=== PATIENT | female | born 1985 | race Caucasian/White ===

== ENCOUNTER 2018-02-27 11:45 | Outpatient (CLI) | payer OTHER ==
--- NOTE | 2018-02-27 14:29 | Ultrasound Report ---
ULTRASOUND OB LIMITED History: Nonreactive stress test Technique: Transabdominal ultrasound with Doppler interrogation. Gestation: Single Position: Cephalic Amniotic Fluid: Normal PHILIPPE = 14.4 cm Heart Rate: 162 BPM
--- NOTE | 2018-02-27 14:30 | Ultrasound Report ---
ULTRASOUND BIOPHYSICAL PROFILE: History: Nonreactive stress test Technique: Transabdominal ultrasound with Doppler interrogation. 2 - breathing movements 2 - movements 2 - posture and tone 2 - Qualitative amniotic fluid volume 8 - TOTAL SCORE OF POSSIBLE 8 Heart Rate (bpm) 162
== END 2018-02-27 14:00 | disposition home or self-care (01) ==
LOC: TRG 11:45
PROVIDERS: ATTEND Obstetrics & Gynecology
DX: O48.0 Post-term pregnancy (principal); Z3A.40 40 weeks gestation of pregnancy
CPT/HCPCS: 59025; 76815; 76819

== ENCOUNTER 2018-03-02 20:36 | Inpatient (IN) | payer OTHER ==
[2018-03-02 21:54] LABS: Hematocrit 36.1 % (30.3-42.9); Hemoglobin 12.5 gm/dl (10.1-14.3); Mean Corpuscular HGB Conc 35 % (30-34); Mean Corpuscular Hemoglobin 32 pg (28-32); Mean Corpuscular Volume 94 fl (79-97); Platelet Count 147 K/mm3 (140-440); Red Blood Count 3.85 M/mm3 (3.65-5.03); Red Cell Distribution Width 13.4 % (13.2-15.2)
[2018-03-03] MEDS ORDERED: LACTATED RINGERS 1,000 ML ONE ×2 (03:52→05:15)
[2018-03-03] MEDS: LACTATED RINGERS 1,000 ML IV SCH ×3 (07:36→18:38)
[2018-03-03] MEDS ORDERED: PITOCin/NS 30 UNIT/500ML 30 UNITS/500 ML BAG IV SCH ×3 (09:00→10:00)
[2018-03-03] MEDS ORDERED: BRETHINE IVP PRN (09:02)
[2018-03-03] MEDS ORDERED: BRETHINE SUB-Q PRN (09:02)
[2018-03-03] MEDS ORDERED: ePHEDrine SULFATE IV PRN (09:02)
[2018-03-03] MEDS ORDERED: XYLOCAINE 2% INFILTRATI ONE (09:02)
[2018-03-03] MEDS ORDERED: SUBLIMAZE IV PRN (09:02)
[2018-03-03] MEDS ORDERED: MINERAL OIL PO PRN (09:02)
[2018-03-03] MEDS ORDERED: ZOFRAN IV PRN ×2 (09:02→19:25)
--- NOTE | 2018-03-03 09:02 | History and Physical Report ---
History of Present Illness Date of examination: 03/03/18 Date of admission: 03/02/18 20:36 Chief complaint: induction of labour History of present illness: 33 y/o at 41 wks is here for labour induction; course has been unremarkable. She is GBS neg Past History Past Medical History: no pertinent history Past Surgical History: no surgical history [employer] History: denies: cancer, chlamydia, fibroids, gonorrhea, hepatitis B, hepatitis C, herpes, HIV, syphilis, trichomonas Social history: , full code. denies: smoking, alcohol abuse, prescription drug abuse, IV drug use - Obstetrical History Expected Date of Delivery: 02/23/18 Actual Gestation: 41 Week(s) 1 Day(s) : 2 Para: 1 Medications and Allergies Allergies Allergy/AdvReac Type Severity Reaction Status Date / Time No Known Allergies Allergy Verified 03/03/18 03:57 Home Medications Medication Instructions Recorded Confirmed Last Taken Type No Known Home Medications [No 03/03/18 03/03/18 Unknown History Reported Home Medications] Active Meds: Active Medications Lactated Ringer's (Lactated Ringers) 1,000 mls @ 125 mls/hr IV DIRECT MARKOS Last Admin: 03/03/18 07:36 Dose: 125 mls/hr Oxytocin/Sodium Chloride (Pitocin/Ns 30 Unit/500ml) 30 units in 500 mls @ 2 mls /hr IV TITR MARKOS; Protocol Review of Systems Constitutional: no fever, no weakness Eyes: no photophobia, no blind spots Ears, nose, mouth and throat: no sinus pressure Cardiovascular: no chest pain, no syncope, no lightheadedness, no high blood pressure Respiratory: no cough, no cough with sputum, no shortness of breath, no dyspnea on exertion Gastrointestinal: no abdominal pain, no nausea, no vomiting, no heartburn, no indigestion Genitourinary: contractions, no vaginal bleeding, no vaginal discharge, no leakage of fluid - Vital Signs Vital signs: Vital Signs Pulse Pulse Ox 81 98 03/02/18 21:02 03/02/18 21:02 Temp Pulse Resp BP Pulse Ox 98.7 F 84 18 140/71 100 03/02/18 22:51 03/03/18 08:59 03/02/18 22:51 03/03/18 07:34 05/26/18 08:59 - Physical Exam Cardiovascular: Regular rate, Normal S1, Normal S2 Lungs: Positive: Clear to auscultation, Normal air movement Abdomen: Positive: normal appearance, soft. Negative: distention, tenderness, guarding, rigidity Genitourinary (Female): Positive: normal external genitalia Uterus: Positive: enlarged (EFW ~ 3600) Adnexa: both: normal Extremities: Positive: normal - Obstetrical Cervical Dilatation: 2 Cervical Effacement Percentage: 40 station: -3 Results Result Diagrams: 03/02/18 21:35 Abnormal lab results 03/02/18 Range/Units 21:35 MCHC 35 H (30-34) % All other labs normal. Assessment and Plan A: 33 y/o at 41+1 wks here for induction -Cat 1 tracing P: -Routine labs -Pit per protocol -Anticipate - Patient Problems (1) 41 weeks gestation of Current Visit: Yes Status: Acute
[2018-03-03] MEDS ORDERED: PITOCin/NS 20 UNIT/1000ML DRIP 20 UNITS/1,000 ML BAG IV SCH ×2 (10:00→20:00)
[2018-03-03] MEDS ORDERED: LACTATED RINGERS 1,000 ML IV SCH (10:00)
--- NOTE | 2018-03-03 17:58 | Progress Note ---
Assessment and Plan A: 33 y/o at 41+1 wks here for induction -Cat 1 tracing P: -Continue present care -Anticipate - Patient Problems (1) 41 weeks gestation of Current Visit: Yes Status: Acute Subjective - Subjective Date of service: 03/03/18 Interval history: Patient now -1 station; PIT at 14 mu/min and IUPC in place Patient reports: new complaints, loss of fluid, movement normal, contractions, no vaginal bleeding Objective - Vital Signs Vital Signs: Vital Signs - 12hr 03/03/18 03/03/18 03/03/18 06:03 06:08 06:13 Temperature Pulse Rate 68 71 67 Respiratory Rate Blood Pressure O2 Sat by Pulse 100 100 100 Oximetry 03/03/18 03/03/18 03/03/18 06:18 06:23 06:28 Temperature Pulse Rate 75 75 71 Respiratory Rate Blood Pressure O2 Sat by Pulse 100 100 100 Oximetry 03/03/18 03/03/18 03/03/18 06:33 06:38 06:49 Temperature Pulse Rate 68 67 76 Respiratory Rate Blood Pressure O2 Sat by Pulse 100 100 99 Oximetry 03/03/18 03/03/18 03/03/18 06:54 06:59 07:04 Temperature Pulse Rate 65 69 74 Respiratory Rate Blood Pressure O2 Sat by Pulse 97 98 98 Oximetry 03/03/18 03/03/18 03/03/18 07:09 07:14 07:19 Temperature Pulse Rate 69 71 69 Respiratory Rate Blood Pressure O2 Sat by Pulse 98 97 97 Oximetry 03/03/18 03/03/18 03/03/18 07:24 07:29 07:34 Temperature Pulse Rate 69 68 73 Respiratory Rate Blood Pressure 140/71 O2 Sat by Pulse 97 98 98 Oximetry 03/03/18 03/03/18 03/03/18 07:39 07:44 07:49 Temperature Pulse Rate 73 66 77 Respiratory Rate Blood Pressure O2 Sat by Pulse 99 99 97 Oximetry 03/03/18 03/03/18 03/03/18 07:54 07:59 08:00 Temperature 98.3 F Pulse Rate 73 71 Respiratory 16 Rate Blood Pressure O2 Sat by Pulse 98 97 Oximetry 03/03/18 03/03/18 03/03/18 08:04 08:09 08:14 Temperature Pulse Rate 77 65 73 Respiratory Rate Blood Pressure O2 Sat by Pulse 96 97 98 Oximetry 03/03/18 03/03/18 03/03/18 08:19 08:24 08:29 Temperature Pulse Rate 67 65 70 Respiratory Rate Blood Pressure O2 Sat by Pulse 96 97 97 Oximetry 03/03/18 03/03/18 03/03/18 08:34 08:39 08:44 Temperature Pulse Rate 69 67 65 Respiratory Rate Blood Pressure O2 Sat by Pulse 96 97 98 Oximetry 03/03/18 03/03/18 03/03/18 08:49 08:54 08:59 Temperature Pulse Rate 65 66 84 Respiratory Rate Blood Pressure O2 Sat by Pulse 98 97 100 Oximetry 03/03/18 03/03/18 03/03/18 09:04 09:09 09:14 Temperature Pulse Rate 83 86 73 Respiratory Rate Blood Pressure O2 Sat by Pulse 99 98 99 Oximetry 03/03/18 03/03/18 03/03/18 09:19 09:24 09:29 Temperature Pulse Rate 70 73 70 Respiratory Rate Blood Pressure O2 Sat by Pulse 99 98 98 Oximetry 03/03/18 03/03/18 03/03/18 09:34 09:39 09:44 Temperature Pulse Rate 71 77 76 Respiratory Rate Blood Pressure O2 Sat by Pulse 98 100 98 Oximetry 03/03/18 03/03/18 03/03/18 09:49 09:54 09:59 Temperature Pulse Rate 77 71 78 Respiratory Rate Blood Pressure O2 Sat by Pulse 99 99 98 Oximetry 03/03/18 03/03/18 03/03/18 10:00 10:04 10:09 Temperature 98.6 F Pulse Rate 77 81 Respiratory 17 Rate Blood Pressure O2 Sat by Pulse 99 97 Oximetry 03/03/18 03/03/18 03/03/18 10:14 10:19 10:23 Temperature Pulse Rate 77 72 74 Respiratory Rate Blood Pressure 111/62 O2 Sat by Pulse 98 99 Oximetry 03/03/18 03/03/18 03/03/18 10:24 10:29 10:34 Temperature Pulse Rate 82 85 70 Respiratory Rate Blood Pressure O2 Sat by Pulse 97 98 98 Oximetry 03/03/18 03/03/18 03/03/18 10:39 10:44 10:49 Temperature Pulse Rate 70 74 68 Respiratory Rate Blood Pressure O2 Sat by Pulse 99 96 97 Oximetry 03/03/18 03/03/18 03/03/18 10:54 10:59 11:04 Temperature Pulse Rate 68 69 74 Respiratory Rate Blood Pressure O2 Sat by Pulse 97 98 97 Oximetry 03/03/18 03/03/18 03/03/18 11:09 11:14 11:19 Temperature Pulse Rate 74 85 76 Respiratory Rate Blood Pressure O2 Sat by Pulse 98 100 99 Oximetry 03/03/18 03/03/18 03/03/18 11:24 11:29 11:34 Temperature Pulse Rate 81 76 79 Respiratory Rate Blood Pressure O2 Sat by Pulse 99 98 98 Oximetry 03/03/18 03/03/18 03/03/18 11:39 11:44 11:49 Temperature Pulse Rate 79 76 72 Respiratory Rate Blood Pressure O2 Sat by Pulse 97 97 98 Oximetry 03/03/18 03/03/18 03/03/18 11:54 11:59 12:00 Temperature 98.3 F Pulse Rate 76 79 Respiratory 17 Rate Blood Pressure O2 Sat by Pulse 98 98 Oximetry 03/03/18 03/03/18 03/03/18 12:04 12:09 12:14 Temperature Pulse Rate 76 76 69 Respiratory Rate Blood Pressure O2 Sat by Pulse 99 96 98 Oximetry 03/03/18 03/03/18 03/03/18 12:19 12:24 12:29 Temperature Pulse Rate 64 79 66 Respiratory Rate Blood Pressure O2 Sat by Pulse 98 98 96 Oximetry 03/03/18 03/03/18 03/03/18 12:34 12:39 12:44 Temperature Pulse Rate 65 77 76 Respiratory Rate Blood Pressure O2 Sat by Pulse 96 97 97 Oximetry 03/03/18 03/03/18 03/03/18 12:49 12:54 13:40 Temperature 97.9 F Pulse Rate 70 66 78 Respiratory 18 Rate Blood Pressure 125/66 O2 Sat by Pulse 97 98 Oximetry 03/03/18 03/03/18 03/03/18 14:12 14:41 15:11 Temperature Pulse Rate 70 73 65 Respiratory Rate Blood Pressure 130/63 132/68 120/61 O2 Sat by Pulse Oximetry 03/03/18 03/03/18 03/03/18 15:41 15:56 16:11 Temperature Pulse Rate 62 65 Respiratory 18 Rate Blood Pressure 130/64 126/70 O2 Sat by Pulse Oximetry 03/03/18 03/03/18 03/03/18 16:40 16:41 17:12 Temperature 97.7 F Pulse Rate 75 65 Respiratory 20 Rate Blood Pressure 121/77 124/60 O2 Sat by Pulse Oximetry 03/03/18 17:46 Temperature Pulse Rate 97 H Respiratory Rate Blood Pressure 105/58 O2 Sat by Pulse Oximetry - Exam FHR: category 1 Cervical Dilatation: 5.5 Cervical Effacement Percentage: 80 station: -1 - Labs Labs: Abnormal Labs 03/02/18 21:35 MCHC 35 H Laboratory Results - last 24 hr 03/02/18 03/02/18 03/02/18 21:35 21:35 21:35 WBC 8.2 RBC 3.85 Hgb 12.5 Hct 36.1 MCV 94 MCH 32 MCHC 35 H RDW 13.4 Plt Count 147 RPR Nonreactive Blood Type O POSITIVE Antibody Screen Negative
--- NOTE | 2018-03-03 18:29 | Progress Note ---
Assessment and Plan - Patient Problems (1) 41 weeks gestation of Current Visit: Yes Status: Acute Subjective - Subjective Date of service: 03/03/18 Interval history: Patient now /-1 station; PIT at 14 mu/min and IUPC in place Patient reports: new complaints, loss of fluid, movement normal, contractions, no vaginal bleeding Objective - Vital Signs Vital Signs: Vital Signs - 12hr 03/03/18 03/03/18 03/03/18 06:33 06:38 06:49 Temperature Pulse Rate 68 67 76 Respiratory Rate Blood Pressure O2 Sat by Pulse 100 100 99 Oximetry 03/03/18 03/03/18 03/03/18 06:54 06:59 07:04 Temperature Pulse Rate 65 69 74 Respiratory Rate Blood Pressure O2 Sat by Pulse 97 98 98 Oximetry 03/03/18 03/03/18 03/03/18 07:09 07:14 07:19 Temperature Pulse Rate 69 71 69 Respiratory Rate Blood Pressure O2 Sat by Pulse 98 97 97 Oximetry 03/03/18 03/03/18 03/03/18 07:24 07:29 07:34 Temperature Pulse Rate 69 68 73 Respiratory Rate Blood Pressure 140/71 O2 Sat by Pulse 97 98 98 Oximetry 03/03/18 03/03/18 03/03/18 07:39 07:44 07:49 Temperature Pulse Rate 73 66 77 Respiratory Rate Blood Pressure O2 Sat by Pulse 99 99 97 Oximetry 03/03/18 03/03/18 03/03/18 07:54 07:59 08:00 Temperature 98.3 F Pulse Rate 73 71 Respiratory 16 Rate Blood Pressure O2 Sat by Pulse 98 97 Oximetry 03/03/18 03/03/18 03/03/18 08:04 08:09 08:14 Temperature Pulse Rate 77 65 73 Respiratory Rate Blood Pressure O2 Sat by Pulse 96 97 98 Oximetry 03/03/18 03/03/18 03/03/18 08:19 08:24 08:29 Temperature Pulse Rate 67 65 70 Respiratory Rate Blood Pressure O2 Sat by Pulse 96 97 97 Oximetry 03/03/18 03/03/18 03/03/18 08:34 08:39 08:44 Temperature Pulse Rate 69 67 65 Respiratory Rate Blood Pressure O2 Sat by Pulse 96 97 98 Oximetry 03/03/18 03/03/18 03/03/18 08:49 08:54 08:59 Temperature Pulse Rate 65 66 84 Respiratory Rate Blood Pressure O2 Sat by Pulse 98 97 100 Oximetry 03/03/18 03/03/18 03/03/18 09:04 09:09 09:14 Temperature Pulse Rate 83 86 73 Respiratory Rate Blood Pressure O2 Sat by Pulse 99 98 99 Oximetry 03/03/18 03/03/18 03/03/18 09:19 09:24 09:29 Temperature Pulse Rate 70 73 70 Respiratory Rate Blood Pressure O2 Sat by Pulse 99 98 98 Oximetry 03/03/18 03/03/18 03/03/18 09:34 09:39 09:44 Temperature Pulse Rate 71 77 76 Respiratory Rate Blood Pressure O2 Sat by Pulse 98 100 98 Oximetry 03/03/18 03/03/18 03/03/18 09:49 09:54 09:59 Temperature Pulse Rate 77 71 78 Respiratory Rate Blood Pressure O2 Sat by Pulse 99 99 98 Oximetry 03/03/18 03/03/18 03/03/18 10:00 10:04 10:09 Temperature 98.6 F Pulse Rate 77 81 Respiratory 17 Rate Blood Pressure O2 Sat by Pulse 99 97 Oximetry 03/03/18 03/03/18 03/03/18 10:14 10:19 10:23 Temperature Pulse Rate 77 72 74 Respiratory Rate Blood Pressure 111/62 O2 Sat by Pulse 98 99 Oximetry 03/03/18 03/03/18 03/03/18 10:24 10:29 10:34 Temperature Pulse Rate 82 85 70 Respiratory Rate Blood Pressure O2 Sat by Pulse 97 98 98 Oximetry 03/03/18 03/03/18 03/03/18 10:39 10:44 10:49 Temperature Pulse Rate 70 74 68 Respiratory Rate Blood Pressure O2 Sat by Pulse 99 96 97 Oximetry 03/03/18 03/03/18 03/03/18 10:54 10:59 11:04 Temperature Pulse Rate 68 69 74 Respiratory Rate Blood Pressure O2 Sat by Pulse 97 98 97 Oximetry 03/03/18 03/03/18 03/03/18 11:09 11:14 11:19 Temperature Pulse Rate 74 85 76 Respiratory Rate Blood Pressure O2 Sat by Pulse 98 100 99 Oximetry 03/03/18 03/03/18 03/03/18 11:24 11:29 11:34 Temperature Pulse Rate 81 76 79 Respiratory Rate Blood Pressure O2 Sat by Pulse 99 98 98 Oximetry 03/03/18 03/03/18 03/03/18 11:39 11:44 11:49 Temperature Pulse Rate 79 76 72 Respiratory Rate Blood Pressure O2 Sat by Pulse 97 97 98 Oximetry 03/03/18 03/03/18 03/03/18 11:54 11:59 12:00 Temperature 98.3 F Pulse Rate 76 79 Respiratory 17 Rate Blood Pressure O2 Sat by Pulse 98 98 Oximetry 03/03/18 03/03/18 03/03/18 12:04 12:09 12:14 Temperature Pulse Rate 76 76 69 Respiratory Rate Blood Pressure O2 Sat by Pulse 99 96 98 Oximetry 03/03/18 03/03/18 03/03/18 12:19 12:24 12:29 Temperature Pulse Rate 64 79 66 Respiratory Rate Blood Pressure O2 Sat by Pulse 98 98 96 Oximetry 03/03/18 03/03/18 03/03/18 12:34 12:39 12:44 Temperature Pulse Rate 65 77 76 Respiratory Rate Blood Pressure O2 Sat by Pulse 96 97 97 Oximetry 03/03/18 03/03/18 03/03/18 12:49 12:54 13:40 Temperature 97.9 F Pulse Rate 70 66 78 Respiratory 18 Rate Blood Pressure 125/66 O2 Sat by Pulse 97 98 Oximetry 03/03/18 03/03/18 03/03/18 14:12 14:41 15:11 Temperature Pulse Rate 70 73 65 Respiratory Rate Blood Pressure 130/63 132/68 120/61 O2 Sat by Pulse Oximetry 03/03/18 03/03/18 03/03/18 15:41 15:56 16:11 Temperature Pulse Rate 62 65 Respiratory 18 Rate Blood Pressure 130/64 126/70 O2 Sat by Pulse Oximetry 03/03/18 03/03/18 03/03/18 16:40 16:41 17:12 Temperature 97.7 F Pulse Rate 75 65 Respiratory 20 Rate Blood Pressure 121/77 124/60 O2 Sat by Pulse Oximetry 03/03/18 03/03/18 17:46 18:12 Temperature Pulse Rate 97 H 79 Respiratory Rate Blood Pressure 105/58 135/57 O2 Sat by Pulse Oximetry - Exam FHR: category 1 Cervical Dilatation: 7.5 station: -1 - Labs Labs: Abnormal Labs 03/02/18 21:35 MCHC 35 H Laboratory Results - last 24 hr 03/02/18 03/02/1803/02/18 21:35 21:35 21:35 WBC 8.2 RBC 3.85 Hgb 12.5 Hct 36.1 MCV 94 MCH 32 MCHC 35 H RDW 13.4 Plt Count 147 RPR Nonreactive Blood Type O POSITIVE Antibody Screen Negative
--- NOTE | 2018-03-03 19:24 | Procedure Note ---
OB Delivery Note - Delivery Date of Delivery: 03/03/18 Surgeon: ALEXA MACHUCA Estimated blood loss: 200cc - Vaginal Delivery presentation: vertex Delivery position: OA Delivery induction: oxytocin Delivery augmentation: rupture of membranes, pitocin Delivery monitor: external FHT, external uterine, internal uterine Route of delivery: Delivery placenta: spontaneous Delivery cord: 3 umbilical vessels Episiotomy: none Delivery laceration: 1st degree Delivery repair: vicryl Anesthesia: none - A at 1 minute: 8 at 5 minutes: 9 Gender: Female (Time of delivery is 19:11, weight is 7#8 or 3403 g)
[2018-03-03] MEDS ORDERED: TUCKS PAD TP PRN (19:25)
[2018-03-03] MEDS ORDERED: MILK OF MAGNESIA PO PRN (19:25)
[2018-03-03] MEDS ORDERED: LANSINOH TP PRN (19:25)
[2018-03-03] MEDS ORDERED: PHENERGAN PR PRN (19:25)
[2018-03-03] MEDS ORDERED: BENADRYL PO PRN (19:25)
[2018-03-03] MEDS ORDERED: NORCO 5/325 PO PRN (19:25)
[2018-03-03] MEDS ORDERED: TYLENOL PO PRN (19:25)
[2018-03-03] MEDS ORDERED: DULCOLAX PR PRN (19:25)
[2018-03-03] MEDS ORDERED: PHENERGAN PO PRN (19:25)
[2018-03-03] MEDS ORDERED: SODIUM CHLORIDE FLUSH SYRINGE 10 ML IV NR (20:00)
[2018-03-03] MEDS: SENOKOT S PO SCH (22:05)
[2018-03-03] MEDS: COLACE PO SCH (22:06)
[2018-03-03] MEDS: FEOSOL PO SCH (22:06)
[2018-03-04] MEDS: MOTRIN PO SCH ×4 (00:09→14:38)
[2018-03-04] MEDS ORDERED: BOOSTRIX IM ONE (06:00)
[2018-03-04] MEDS ORDERED: M-M-R II VACCINE SUB-Q ONE (06:00)
[2018-03-04 09:36] LABS: Hematocrit 31.5 % (30.3-42.9); Hemoglobin 10.9 gm/dl (10.1-14.3)
[2018-03-04] MEDS: FEOSOL PO SCH (11:40)
[2018-03-04] MEDS: PRENATAL VITAMIN PO SCH (11:40)
[2018-03-04] MEDS: COLACE PO SCH (11:40)
--- NOTE | 2018-03-04 11:51 | Progress Note ---
Assessment and Plan A: PP DAY #1 Stable P: Follow Routine Orders D/C home in the AM RTO in 6 Weeks Subjective - Subjective Date of service: 03/04/18 Patient reports: appetite normal, voiding normally, pain well controlled, flatus , ambulating normally : doing well Objective - Vital Signs Latest vital signs: Vital Signs Temp Pulse Resp BP BP Pulse Ox 03/04/18 09:02 80 123/74 100 03/04/18 08:49 98.6 F 18 03/04/18 08:34 72 99 03/04/18 08:33 98.4 F 74 18 99/55 99 03/04/18 05:37 18 03/04/18 04:05 98.0 F 62 18 101/67 03/04/18 00:09 18 03/04/18 00:00 98.1 F 76 18 114/63 03/03/18 21:00 98.0 F 67 18 127/60 03/03/18 20:37 70 16 105/60 105/60 03/03/18 20:22 70 131/60 03/03/18 20:17 98.4 F 03/03/18 20:07 78 14 131/60 131/60 03/03/18 19:52 71 16 143/61 143/61 03/03/18 19:37 75 135/61 03/03/18 19:35 75 16 135/61 03/03/18 19:23 96 H 18 136/58 136/58 03/03/18 19:11 97 H 158/98 03/03/18 18:41 88 140/75 03/03/18 18:25 97.7 F 20 03/03/18 18:12 79 135/57 03/03/18 17:46 97 H 105/58 03/03/18 17:12 65 124/60 03/03/18 16:41 75 121/77 03/03/18 16:40 97.7 F 20 03/03/18 16:11 65 126/70 03/03/18 15:56 18 03/03/18 15:41 62 130/64 03/03/18 15:11 65 120/61 03/03/18 14:41 73 132/68 03/03/18 14:12 70 130/63 03/03/18 13:40 97.9 F 78 18 125/66 03/03/18 12:54 66 98 03/03/18 12:49 70 97 03/03/18 12:44 76 97 03/03/18 12:39 77 97 03/03/18 12:34 65 96 03/03/18 12:29 66 96 03/03/18 12:24 79 98 03/03/18 12:19 64 98 03/03/18 12:14 69 98 03/03/18 12:09 76 96 03/03/18 12:04 76 99 03/03/18 12:00 98.3 F 17 03/03/18 11:59 79 98 03/03/18 11:54 76 98 Intake and Output 03/03/18 03/04/18 03/04/18 22:59 06:59 14:59 Intake Total 2046.349 360 Output Total 700 1200 Balance 1346.349 -840 Intake: IV 6.349 Lactated Ringers 1,000 ml 1989.583 @ 125 mls/hr IV DIRECT MARKOS Rx#:[id number] PITOCin/NS 30 UNIT/500ML 56.766 30 units In 500 ml @ 1 MILLIUNITS/MIN 1 mls/hr IV TITR MARKOS Rx#:[id number] Oral 360 Output: Urine 700 1200 Void 700 1200 Other: Total, Intake Amount 120 Total, Output Amount 700 400 Estimated Blood Loss 200 - Exam Breasts: Present: normal Cardiovascular: Present: Regular rate Lungs: Present: Clear to auscultation, Normal air movement Abdomen: Present: normal appearance, soft, normal bowel sounds Uterus: Present: normal, firm, fundal height below umbilicus Extremities: Present: normal
--- NOTE | 2018-03-04 11:52 | Discharge Summary ---
Providers - Providers Date of Admission: 03/02/18 20:36 Date of discharge: 03/05/18 Attending physician: HILARY SHEN MD Primary care physician: HILARY SHEN MD Hospitalization Reason for admission: induction of labor Delivery: Episiotomy: none Laceration: 1st degree Other procedures: none complications: none Discharge diagnosis: IUP at term delivered House baby: female Condition at discharge: Good Disposition: DC-01 TO HOME OR SELFCARE Plan - Discharge Medications Prescriptions: Ibuprofen [Motrin 600 MG tab] 600 mg PO Q8H PRN #30 tablet PRN Reason: Pain Multivitamin with Iron [Multivitamins with Iron] 1 each PO DAILY #30 tablet - Provider Discharge Summary Activity: routine, no sex for 6 weeks, no heavy lifting 4 weeks, no strenuous exercise Diet: routine Instructions: routine Additional instructions: [] Smoking cessation referral if applicable(refer to patient education folder for contact #) [] Refer to [facility]'s [facility] Booklet Call your doctor immediately for: * Fever > 100.5 * Heavy vaginal bleeding ( >1 pad per hour) * Severe persistent headache * Shortness of breath * Reddened, hot, painful area to leg or breast * Drainage or odor from incision. * Keep incision clean and dry at all times and follow doctor's instructions regarding bathing/showering - Follow up plan Follow up: HILARY SHEN MD [Primary Care Provider] - 6 Weeks
[2018-03-05] MEDS: SENOKOT S PO SCH (09:00)
[2018-03-05] MEDS: MOTRIN PO SCH (09:00)
[2018-03-05] MEDS: FEOSOL PO SCH (09:14)
[2018-03-05] MEDS: COLACE PO SCH (09:14)
[2018-03-05] MEDS: PRENATAL VITAMIN PO SCH (09:14)
[2018-03-05 18:27] VITALS: BP 117/42
== END 2018-03-05 19:40 | disposition home or self-care (01) | DRG 775 ==
LOC: LD 20:36 → OB 03-03 21:05
PROVIDERS: ADMIT Obstetrics & Gynecology; ATTEND Obstetrics & Gynecology
PROC: 10E0XZZ Delivery of Products of Conception, External Approach (ICD-10-PCS; principal; 2018-03-03)
PROC: 0HQ9XZZ Repair Perineum Skin, External Approach (ICD-10-PCS; 2018-03-03)
PROC: 10H07YZ Insertion of Other Device into Products of Conception, Via Natural or Artificial Opening (ICD-10-PCS; 2018-03-03)
PROC: 3E033VJ Introduction of Other Hormone into Peripheral Vein, Percutaneous Approach (ICD-10-PCS; 2018-03-03)
PROC: 3E0234Z Introduction of Serum, Toxoid and Vaccine into Muscle, Percutaneous Approach (ICD-10-PCS; 2018-03-04)
DX: O70.0 First degree perineal laceration during delivery (principal); Z3A.41 41 weeks gestation of pregnancy; Z37.0 Single live birth; Z23 Encounter for immunization
CPT/HCPCS: 36415; 85014; 85018; 85027; 86592; 86850; 86900; 86901; J2590; J3010; J7120